=== PATIENT | male | born 1990 | race American Indian/Alaskan Native ===

== ENCOUNTER 2023-09-11 08:34 | Emergency (ER) | payer OTHER ==
[2023-09-11] MEDS: Proparacaine 0.5% Ophth Soln 15 ML Bottle EYERT ONE (09:20)
[2023-09-11] MEDS: Ciprofloxacin 0.3% Ophth Soln 5 ML Bottle EYERT ONE (09:53)
[2023-09-11] MEDS: Fluorescein 1 MG Ophth Strip EYERT ONE (09:54)
== END 2023-09-11 10:05 | disposition home or self-care (01) ==
LOC: JD.ED 08:34
DX: S05.01XA Injury of conjunctiva and corneal abrasion without foreign body, right eye, initial encounter (principal); W45.8XXA Other foreign body or object entering through skin, initial encounter
CPT/HCPCS: 65220; 99283; A9270; J3490